=== PATIENT | male | born 1990 | race Caucasian/White ===

== ENCOUNTER 2018-09-22 05:38 | Emergency (ER) | payer SELFPAY ==
[2018-09-22] MEDS ORDERED: Acetaminophen/HYDROcodone 325-5 MG Tab PO ONE (05:55)
--- NOTE | 2018-09-22 06:01 | EDM.PDOC ---
<Sandro Martinez - Last Filed: 09/22/18 06:51> ED HPI GENERAL MEDICAL PROBLEM - General Chief Complaint: Genitourinary Problem Stated Complaint: SWOLLEN TESTICLE Time Seen by Provider: 09/22/18 05:49 Source of Information: Reports: Patient History Limitations: Reports: No Limitations - History of Present Illness INITIAL COMMENTS - FREE TEXT/NARRATIVE: The patient presents with right testicular pain. He says this all started in July. He came to the ER then with testicular pain and dysuria with discharge. He was suspected to have an STD with epidydimitis. He was given rocephin, zithromax and doxycycline. The gonorrhea and chlamydia were negative. He continued with the antibiotics and did improve but the pain came back. His girlfriend got tested and she was negative. They treated him some more with doxycycline. He got better and now he has more pain again and he says his right testicle is "rock hard" and painful. He has no dysuria or hematuria. He has no urethral discharge or rashes. He denies trauma to his testicle. He was at work this morning when he noticed it. He has no abdominal pain, nausea or vomiting. Onset: Gradual Duration: Week(s): Location: Reports: Other (Right testicle pain) Quality: Reports: Sharp Severity: Severe Improves with: Reports: None Worsens with: Reports: None Associated Symptoms: Reports: No Other Symptoms Right Penis Pain Score (Numeric/FACES): 8 - Related Data Allergies Allergy/AdvReac Type Severity Reaction Status Date / Time No Known Allergies Allergy Verified 09/22/18 05:51 Home Meds: Home Meds Albuterol [Ventolin HFA] 1 puff INH Q4H PRN 07/16/18 [History] Doxycycline [Vibramycin] 100 mg PO BID #28 cap 07/16/18 [Rx] Phenazopyridine HCl [Pyridium] 200 mg PO Q6HR #5 tablet 07/16/18 [Rx] predniSONE [Prednisone] 40 mg PO DAILY 07/16/18 [History] Hydrocodone/Acetaminophen [[place] 5-325 Tablet] 1 each PO Q4HR PRN #20 tablet [Rx] Past Medical History Respiratory History: Reports: Asthma - Past Surgical History HEENT Surgical History: Reports: Myringotomy w Tube(s) Social & Family History - Tobacco Use Smoking Status *Q: Current Every Day Smoker Years of Tobacco use: 10 Packs/Tins Daily: 0.5 - Recreational Drug Use Recreational Drug Use: No - Living Situation & Occupation Living situation: Reports: Single ED ROS GENERAL - Review of Systems Review Of Systems: See Below Constitutional: Reports: No Symptoms HEENT: Reports: No Symptoms Respiratory: Reports: No Symptoms Cardiovascular: Reports: No Symptoms Endocrine: Reports: No Symptoms GI/Abdominal: Reports: No Symptoms : Reports: Other (Right testicle pain) ED EXAM, RENAL/ - Physical Exam Exam: See Below Exam Limited By: No Limitations General Appearance: Alert, No Apparent Distress Ears: Normal External Exam Nose: Normal Inspection Head: Atraumatic, Normocephalic Neck: Normal Inspection Respiratory/Chest: No Respiratory Distress, Lungs Clear, Normal Breath Sounds Cardiovascular: Regular Rate, Rhythm, No Edema, No Murmur GI/Abdominal: Soft, Non-Tender, No Organomegaly, No Mass (Male) Exam: Circumcised, Testicular Tenderness (R). No: Rash, Testicular Mass, Urethral Discharge Course - Vital Signs Last Recorded V/S: Last Vital Signs Temp 98.5 F 09/22/18 05:49 Pulse 84 09/22/18 05:49 Resp 16 09/22/18 05:49 BP 153/103 H 09/22/18 05:49 Pulse Ox 98 09/22/18 05:49 - Orders/Labs/Meds Orders: Active Orders 24 hr Category Date Time Status Testicular US [Scrotum and Contents] [US] Stat Exams 09/22/18 05:54 Taken Labs: Laboratory Tests 09/22/18 Range/Units 07:09 Urine Color Light yellow (Yellow) Urine Appearance Clear (Clear) Urine pH 6.0 (5.0-8.0) Ur Specific [place] 1.010 (1.005-1.030) Urine Protein Negative (Negative) Urine Glucose (UA) Negative (Negative) Urine Ketones Negative (Negative) Urine Occult Blood Negative (Negative) Urine Nitrite Negative (Negative) Urine Bilirubin Negative (Negative) Urine Urobilinogen 0.2 (0.2-1.0) Ur Leukocyte Esterase Negative (Negative) Urine RBC Not seen (0-5) /hpf Urine WBC 0-5 (0-5) /hpf Ur Epithelial Cells 0-5 (0-5) /hpf Urine Bacteria Not seen (FEW) /hpf Urine Mucus Not seen (FEW) /hpf Meds: Medications Discontinued Medications Generic Name Dose Route Start Last Admin Trade Name Jonelle PRN Reason Stop Dose Admin Hydrocodone Bitart/Acetaminophen 2 tab 09/22/18 05:55 09/22/18 06:01 [place] 325-5 Mg PO 09/22/18 05:56 2 tab ONETIME ONE Administration Azithromycin 1,000 mg 09/22/18 07:36 Zithromax PO 09/22/18 07:37 ONETIME ONE Ceftriaxone Sodium 250 mg 09/22/18 07:38 Rocephin IM 09/22/18 07:39 ONETIME ONE - Re-Assessments/Exams Free Text/Narrative Re-Assessment/Exam: 09/22/18 06:01 I ordered an US of his right testicle, UA and some hydrocodone for pain. 09/22/18 06:51 It is change of shift. Dr Amaro to take over. Departure - Departure Disposition: Home, Self-Care 01 Clinical Impression: Epididymitis - Discharge Information Prescriptions: Hydrocodone/Acetaminophen [[place] 5-325 Tablet] 1 each PO Q4HR PRN #20 tablet PRN Reason: Pain Referrals: PCP,None [Primary Care Provider] - Forms: ED Department Discharge Additional Instructions: You have been given rocephin IM and zithromax 1 gram orally while here in the ED. Continue the doxycycline that you are currently taking. Ice packs as needed, aleve 2 tablets twice daily will help the pain and inflammation. you may take tylenol in addition up to 3 times daily for pain or hydrocodone if needed for severe pain. Do not take Tylenol and hydrocodone at the same time. Do not drive or work when taking hydrocodone. Follow up with your regular clinic provider if not much better within 3-5 days as expected. <Néstor Amaro - Last Filed: 09/22/18 07:49> Course - Re-Assessments/Exams Free Text/Narrative Re-Assessment/Exam: 09/22/18 07:38 Have assumed care from Dr Martinez at change of shift. US is back showing findings compatable with R epididymitis, see report for details. Will treat with zithromax 1 gram PO, rocephin 250 mg IM, will have him continue, finish the doxycycline that he is currently taking. Departure - Departure Time of Disposition: 07:40 Condition: Fair
[2018-09-22] MEDS ORDERED: Azithromycin 250 MG Tab PO ONE (07:36)
[2018-09-22] MEDS ORDERED: cefTRIAXone 250 MG Vial IM ONE (07:38)
--- NOTE | 2018-09-22 16:59 | US ---
Testicular ultrasound: Multiple real-time images of the testicles were obtained. Comparison: No prior testicular ultrasound. Findings: Testicles have a homogeneous ultrasound appearance. Both arterial and venous blood flow are seen within the testicles. Small epididymal cyst is noted on the left side measuring 3.5 cm. Small bilateral hydroceles are seen. Varicocele is noted on the left side. Right epididymis is slightly hyperemic. No additional abnormality is seen. Testicular size: Right testicle: 4.5 x 2.5 x 3.5 cm Left testicle: 4.2 x 2.1 x 3.3 cm Impression: 1. Left-sided varicocele. 2. Small bilateral hydroceles. 3. Incidental small epididymal cyst on the left side 4. Mildly hyperemic right epididymis possibly due to mild epididymitis. Diagnostic code #3 I agree with preliminary report from [facility], finalized on 09/22/18, 8:22 AM Central Time
== END 2018-09-22 08:25 | disposition home or self-care (01) ==
LOC: JD.ED 05:38
DX: N45.1 Epididymitis (principal); F17.210 Nicotine dependence, cigarettes, uncomplicated; Z79.899 Other long term (current) drug therapy
CPT/HCPCS: 76870; 81001; 93975; 96372; 99284; A9270; J0696; 99283

== ENCOUNTER 2018-12-24 21:05 | Emergency (ER) | payer SELFPAY ==
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
[2018-12-24] MEDS ORDERED: Ibuprofen 600 MG Tab PO ONE (22:15)
[2018-12-24] MEDS ORDERED: Acetaminophen/oxyCODONE 325-5 MG Tab PO ONE (22:22)
--- NOTE | 2018-12-25 06:42 | CR ---
Right ankle: Four views of the right ankle were obtained. Comparison: No prior ankle exam. Soft tissue swelling is identified. Ankle mortise is symmetric. No fracture, dislocation or other bony abnormality is seen. Impression: 1. Soft tissue swelling. No bony abnormality is seen on right ankle exam. Diagnostic code #2
== END 2018-12-24 22:53 | disposition home or self-care (01) ==
LOC: JD.ED 21:05
DX: S93.411A Sprain of calcaneofibular ligament of right ankle, initial encounter (principal); F10.129 Alcohol abuse with intoxication, unspecified; W01.0XXA Fall on same level from slipping, tripping and stumbling without subsequent striking against object, initial encounter
CPT/HCPCS: 73610; 99283; A9270

== ENCOUNTER 2019-05-02 20:40 | Emergency (ER) | payer SELFPAY ==
[2019-05-02] MEDS ORDERED: Ketorolac 30 MG/ML SDV IVPUSH STA (21:33)
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
[2019-05-02] MEDS ORDERED: Sodium Chloride 0.9% 1,000 ML IV SCH (21:45)
--- NOTE | 2019-05-05 07:00 | CR ---
Right wrist: Four views of the right wrist were obtained. Comparison: No previous study. Slight irregularity is again seen off the base of the fifth metacarpal. As mentioned previously, this is believed to represent injury. Joint spaces within the wrist appear maintained. No acute fracture or other bony abnormality is identified. Impression: 1. Findings felt compatible with old injury within the corner base of the fifth metacarpal. 2. Right wrist exam is otherwise unremarkable. Diagnostic code #2
--- NOTE | 2019-05-05 07:33 | CR ---
Right hand: Four views of the right hand were obtained. Comparison: No previous study. Very small corner fracture is identified within the base of the fifth metacarpal. This is slightly sclerotic and is most likely old. No additional fracture or other bony abnormality is identified. Impression: 1. Small corner fracture which is most likely old within the base of fifth metacarpal. 2. No additional abnormality is appreciated on right hand exam. Diagnostic code #2
== END 2019-05-02 22:24 | disposition home or self-care (01) ==
LOC: JD.ED 20:40
DX: S61.214A Laceration without foreign body of right ring finger without damage to nail, initial encounter (principal); S60.221A Contusion of right hand, initial encounter; F10.229 Alcohol dependence with intoxication, unspecified; I10 Essential (primary) hypertension; F17.210 Nicotine dependence, cigarettes, uncomplicated; W22.8XXA Striking against or struck by other objects, initial encounter
CPT/HCPCS: 73110; 73130; 99283; J1885; J7040

== ENCOUNTER 2019-06-07 19:53 | Emergency (ER) | payer OTHER ==
[2019-06-07] MEDS ORDERED: Iopamidol 612 MG/ML 100 ML Bottle IVPUSH ONE (20:00)
[2019-06-07] MEDS ORDERED: HYDROmorphone 1 MG/ML Syringe ONE (20:06)
[2019-06-07] MEDS ORDERED: HYDROmorphone 1 MG/ML Syringe IVPUSH ONE ×2 (20:10)
[2019-06-07] MEDS ORDERED: Ondansetron 4 MG/2 ML SDV IVPUSH ONE (20:11)
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
--- NOTE | 2019-06-07 20:36 | CT ---
Head CT Technique: Multiple axial sections through the brain were obtained. Intravenous contrast was not utilized. Comparison: No prior intracranial imaging. Findings: Motion artifact is seen which diminishes details of the exam. Within this limitation, no definite abnormal parenchymal densities are seen. No definite findings of intracranial hemorrhage. No midline shift or mass effect is seen. Bone window settings were reviewed which show no discrete calvarial abnormality. Nothing acute is seen within the visualized paranasal sinuses or mastoid sinuses. Impression: 1. Motion artifact limiting details. Within this limitation, no definite acute finding is seen on noncontrast head CT exam. Diagnostic code #2
--- NOTE | 2019-06-07 20:55 | CT ---
CT cervical spine Technique: Multiple axial sections were obtained from above C1 inferiorly to the lower T1 level. Reconstructed sagittal and coronal images were obtained. Comparison: No previous study. Findings: Mild disc space narrowing is noted at C5-C6 with slight anterior osteophytes and minimal posterior spurring. Mild anterior osteophytes are noted at C6-7. Vertebral body heights are maintained. Vertebral bodies and posterior arches show no fracture. Motion artifact is noted within the lower most images which limits evaluation. No abnormal subluxation is seen. Impression: 1. Mild degenerative change. 2. Motion artifact within the lower most images. 3. Within the limitation of motion, nothing acute is definitely appreciated on CT study of the cervical spine. Diagnostic code #2
--- NOTE | 2019-06-07 21:04 | CT ---
CT chest Technique: Multiple axial sections were obtained from slightly above the lung apices inferiorly through the lung bases. Intravenous contrast was utilized. Artifact is noted from patient's arms located along the patient's side. Findings: Soft tissue density is noted within the superior mediastinum which is felt compatible with residual thymic tissue. Mediastinum and hilar region show no adenopathy. No pericardial thickening is seen. Lungs show no definite parenchymal opacities. No pleural effusions or discrete pneumothorax is seen. There does appear to be fractures within the posterior right 10th , 9th and possibly 8th and 7th ribs. Other rib fractures could be missed due to motion.. No gross bony abnormality is seen. Impression: 1. Motion artifact. Fractures within the posterior 10th and 9th ribs and possibly 8th and 7th posterior ribs on the right side. Motion artifact could obscure other rib fractures. 2. No other definite acute finding is seen on CT study of the chest. Diagnostic code #3 CT abdomen and pelvis Technique: Multiple axial sections were obtained from above the dome of the diaphragm inferiorly through the pubic symphysis. Intravenous contrast was utilized. No oral contrast has been given. Comparison: No prior abdominal imaging is available. Findings: Stomach is dilated with food material. Liver contains no focal abnormality. Gallbladder contains no calcified gallstones. Spleen shows no discrete abnormality. Adrenal glands show no nodule. Pancreas appears within normal limits. Kidneys show symmetric contrast enhancement without hydronephrosis or mass. Abdominal aorta shows no aneurysm. No retroperitoneal adenopathy or mesenteric abnormalities are seen. No pelvic mass or adenopathy is seen. No free fluid or inflammatory change is seen. Appendix is felt to be visualized on the coronal images and is normal in size. Bone window settings were reviewed which shows disc space narrowing within the mid and lower thoracic spine. This is most likely developmental. No definite fracture or abnormal subluxation is seen. Impression: 1. Dilated stomach with food material. 2. Nothing acute is definitely appreciated on CT study of the abdomen and pelvis. Diagnostic code #2
[2019-06-07] MEDS ORDERED: Sodium Chloride 0.9% 1,000 ML ONE (21:54)
[2019-06-07] MEDS ORDERED: Sodium Chloride 0.9% 1,000 ML IV SCH (22:00)
[2019-06-07] MEDS ORDERED: HYDROmorphone 0.5 MG/0.5 ML Syringe IVPUSH ONE (22:05)
--- NOTE | 2019-06-08 10:57 | CR ---
Right hand: Three views of the right hand were obtained. Small calcification is seen off the base of the fifth metacarpal. Difficult to exclude small chip fracture. There does appear to be soft tissue swelling. Joint spaces are maintained. No additional fracture or other bony abnormality is seen. Impression: 1. Soft tissue swelling. 2. Questionable minimal chip fracture off the base of the fifth metacarpal. Diagnostic code #3
== END 2019-06-07 23:16 ==
LOC: JD.ED 19:53
DX: S22.41XA Multiple fractures of ribs, right side, initial encounter for closed fracture (principal); S31.020A Laceration with foreign body of lower back and pelvis without penetration into retroperitoneum, initial encounter; S61.411A Laceration without foreign body of right hand, initial encounter; S60.221A Contusion of right hand, initial encounter; S40.812A Abrasion of left upper arm, initial encounter; S40.811A Abrasion of right upper arm, initial encounter; S80.812A Abrasion, left lower leg, initial encounter; S80.811A Abrasion, right lower leg, initial encounter; F10.120 Alcohol abuse with intoxication, uncomplicated; I10 Essential (primary) hypertension; J45.909 Unspecified asthma, uncomplicated; Y90.1 Blood alcohol level of 20-39 mg/100 ml; V48.9XXA Unspecified car occupant injured in noncollision transport accident in traffic accident, initial encounter; Y92.410 Unspecified street and highway as the place of occurrence of the external cause
CPT/HCPCS: 36415; 70450; 71260; 72125; 73130; 74177; 80053; 80320; 82150; 84484; 85025; 85610; 85730; 93005; 96361; 96374; 96375; 96376; 99285; J1170; J2405; J7040; 93010; G0480

== ENCOUNTER 2019-06-19 20:36 | Emergency (ER) | payer SELFPAY ==
[2019-06-19] MEDS ORDERED: HYDROmorphone 1 MG/ML Syringe IVPUSH ONE (20:40)
[2019-06-19] MEDS ORDERED: LORazepam 2 MG/ML SDV IVPUSH ONE (20:41)
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
[2019-06-19] MEDS ORDERED: Dextrose 5%-0.9% NaCl 1,000 ML IV SCH (20:45)
[2019-06-19] MEDS ORDERED: Metoclopramide 10 MG/2 ML SDV IVPUSH ONE (20:46)
--- NOTE | 2019-06-20 08:16 | CT ---
CT chest Technique: Multiple axial sections through the chest were obtained. Intravenous contrast was not utilized. Comparison: Previous chest CT study of 06/07/19. Findings: Current study shows significantly less motion artifact than previous and therefore shows more detail. Nondisplaced fracture is noted within the posterior right 7th rib. Mildly displaced fracture is seen within the posterior 8th, 9th and 10th ribs. Very minimal cortical disruption seen within the lateral left 6th rib. This is felt compatible with a nondisplaced fracture. No other definite rib fracture is seen. Disc space narrowing is noted within the mid and lower thoracic spine with endplate irregularity believed to be developmental. Nothing acute is seen within the thoracic spine. Reconstructed sagittal images show the sternum to appear intact. Fracture is noted within the left wing of the scapula. This measures about 2.8 mm in greatest displacement. Mediastinum and hilar regions have an unremarkable noncontrast appearance. No axillary adenopathy is seen. No pericardial fluid is seen. No pneumothorax is noted. Lungs are clear with no acute parenchymal change. Very minimal pleural effusion seen on the right side. Impression: 1. 4 rib fractures seen on the right side with one nondisplaced fracture noted on the left side. 2. Mildly displaced fracture within the left scapular wing. 3. No pneumothorax or acute parenchymal change is seen. Note: No definite change is believed to be present from prior chest CT. Diagnostic code #3 I agree with preliminary report from [facility], finalized on 06/19/19, 10:54 PM Central Time
--- NOTE | 2019-06-20 08:16 | CR ---
Left humerus: Two views of the left humerus were obtained. Comparison: No previous left humerus exam. Fracture is noted beneath the glenoid involving the body of the scapula in a transverse direction. No additional fracture or other bony abnormality is seen. Impression: 1. Left scapular fracture. No additional abnormality is appreciated on left humerus study. Diagnostic code #3
== END 2019-06-20 04:24 | disposition home or self-care (01) ==
LOC: JD.ED 20:36
DX: S42.102A Fracture of unspecified part of scapula, left shoulder, initial encounter for closed fracture (principal); S20.211A Contusion of right front wall of thorax, initial encounter; S22.41XD Multiple fractures of ribs, right side, subsequent encounter for fracture with routine healing; F10.120 Alcohol abuse with intoxication, uncomplicated; Y90.7 Blood alcohol level of 200-239 mg/100 ml; R29.6 Repeated falls; I10 Essential (primary) hypertension; W00.0XXA Fall on same level due to ice and snow, initial encounter; Y93.01 Activity, walking, marching and hiking; Y92.038 Other place in apartment as the place of occurrence of the external cause
CPT/HCPCS: 36415; 71250; 73060; 80053; 80320; 83690; 85025; 86140; 96361; 96374; 96375; 99285; J1170; J2060; J2765; J7042; G0480

== ENCOUNTER 2019-10-13 20:45 | Emergency (ER) | payer SELFPAY ==
[2019-10-14] MEDS ORDERED: Lactated Ringers 1,000 ML IV ONE (01:26)
--- NOTE | 2019-10-14 01:27 | EDM.PDOCBH ---
ED HPI GENERAL MEDICAL PROBLEM - General Chief Complaint: Drug or Alcohol Abuse Stated Complaint: LAW ENFORCEMENT Time Seen by Provider: 10/14/19 01:05 Source of Information: Reports: Patient History Limitations: Reports: Intoxication (Able to answer questions) - History of Present Illness INITIAL COMMENTS - FREE TEXT/NARRATIVE: Mr. Luciano is a very pleasant 29-year-old man with past medical history significant for alcoholism, untreated hypertension, and untreated asthma, who is brought to the ED by the [place] police after he was found outside, intoxicated. They took him home, however, he then stumbled and they felt that he was too intoxicated to leave alone. It is unclear if the patient was taken to long term initially, but he was ultimately brought here in order to be medically cleared to go to long term. He is not under arrest. The patient had earlier been crying and asking why nobody liked him, however, at present, he is rational and cooperative. He did not initially know where he was, thinking that he was at the [facility] in clinic, and he did not recall how he got here. He acknowledged that he drank a lot recently, telling me that he drinks about 1/4 of a handle (about 10 drinks) of whiskey on a near-daily basis. He denied any additional alcohol, such as beer, but he acknowledges that he smoked marijuana about 2 or 3 days ago. The patient denies any recent illness or injury, although I note that he has some ecchymosis about his left eye. When asked about that, he stated "I probably fell". The patient does not have a PCP. He states that he did receive an influenza vaccine this season. - Related Data Allergies Allergy/AdvReac Type Severity Reaction Status Date / Time No Known Allergies Allergy Verified 10/13/19 20:51 Home Meds: Home Meds . [No Known Home Meds] 10/13/19 [History] Past Medical History Respiratory History: Reports: Asthma (untreated) Musculoskeletal History: Reports: Fracture (5 right, 1 left rib, left scapula) Psychiatric History: Reports: Addiction (alcohol) - Past Surgical History HEENT Surgical History: Reports: Myringotomy w Tube(s) (bilateral) Social & Family History - Family History Family Medical History: Noncontributory - Tobacco Use Smoking Status *Q: Current Every Day Smoker Years of Tobacco use: 14 Packs/Tins Daily: 2.5 - Caffeine Use Caffeine Use: Reports: None - Alcohol Use Alcohol Use History: Yes Days Per Week of Alcohol Use: 7 Number of Drinks Per Day: 10 Total Drinks Per Week: 70 Alcohol Use Frequency: Daily - Recreational Drug Use Recreational Drug Use: Yes Drug Use in Last 12 Months: Yes Recreational Drug Type: Reports: Cocaine (last snorted or smoked 2015), Heroin ( last smoked 2015), Marijuana/Hashish (smokes several times a week), Methamphetamine (last snorted or smoked 2015), Other (see below) (Vicodin/norco - last snorted or smoked 2008) - Living Situation & Occupation Living situation: Reports: Single, Alone Occupation: Employed ([employer]) ED ROS GENERAL - Review of Systems Review Of Systems: Comprehensive ROS is negative, except as noted in HPI. ED EXAM, BEHAVIORAL HEALTH - Physical Exam Exam: See Below Exam Limited By: Other (Cooperative with exam) General Appearance: No Apparent Distress Eye Exam: Right Eye: Normal Inspection, Left Eye: Other (Mild ecchymosis about left eye), Bilateral Eye: EOMI Ears: Normal External Exam, Hearing Grossly Normal Nose: Normal Inspection Throat/Mouth: Normal Inspection, Normal Lips, Normal Voice, No Airway Compromise Head: Atraumatic, Normocephalic Neck: Normal Inspection, Full Range of Motion Respiratory/Chest: No Respiratory Distress, Lungs Clear, Normal Breath Sounds, No Accessory Muscle Use Cardiovascular: Normal Peripheral Pulses, Regular Rate, Rhythm, No Edema, No Gallop, No JVD, No Murmur, No Rub GI/Abdominal: Normal Bowel Sounds, Soft, Non-Tender, No Organomegaly, No Distention, No Abnormal Bruit, No Mass (Male) Exam: Deferred Rectal (Males) Exam: Deferred Back Exam: Normal Inspection, Full Range of Motion Extremities: Normal Inspection, Normal Range of Motion, No Pedal Edema, Normal Capillary Refill Neurological: No Motor/Sensory Deficits Psychiatric: Normal Affect Skin Exam: Warm, Dry, Intact, Normal color, No rash COURSE, BEHAVIORAL HEALTH COMP - Course Vital Signs: Last Vital Signs Temp 36.8 C 10/13/19 20:47 Pulse 83 10/13/19 20:47 Resp 16 10/13/19 20:47 BP 117/78 10/13/19 20:47 Pulse Ox 98 02/03/20 20:47 Orders, Labs, Meds: Laboratory Tests 10/14/19 10/14/19 Range/Units 01:34 01:34 WBC 11.84 H (4.23-9.07) K/mm3 RBC 5.76 (4.63-6.08) M/mm3 Hgb 16.6 (13.7-17.5) gm/dl Hct 49.4 (40.1-51.0) % MCV 85.8 (79.0-92.2) fl MCH 28.8 (25.7-32.2) pg MCHC 33.6 (32.2-35.5) g/dl RDW Std Deviation 46.2 H (35.1-43.9) fL Plt Count 251 D (163-337) K/mm3 MPV 9.4 (9.4-12.3) fl Neut % (Auto) 55.8 (34.0-67.9) % Lymph % (Auto) 34.5 (21.8-53.1) % Hayes % (Auto) 7.3 (5.3-12.2) % Eos % (Auto) 1.8 (0.8-7.0) Baso % (Auto) 0.4 (0.1-1.2) % Neut # (Auto) 6.62 H (1.78-5.38) K/mm3 Lymph # (Auto) 4.08 H (1.32-3.57) K/mm3 Hayes # (Auto) 0.86 H (0.30-0.82) K/mm3 Eos # (Auto) 0.21 (0.04-0.54) K/mm3 Baso # (Auto) 0.05 (0.01-0.08) K/mm3 Manual Slide Review Abnormal smear Sodium 144 (136-145) mEq/L Potassium 3.9 (3.5-5.1) mEq/L Chloride 108 H (98-107) mEq/L Carbon Dioxide 24 (21-32) mEq/L Anion Gap 15.9 H (5-15) BUN 9 (7-18) mg/dL Creatinine 0.8 (0.7-1.3) mg/dL Est Cr Clr Drug Dosing 134.19 mL/min Estimated GFR (MDRD) > 60 (>60) mL/min BUN/Creatinine Ratio 11.3 L (14-18) Glucose 99 (74-106) mg/dL Calcium 8.8 (8.5-10.1) mg/dL Magnesium 2.1 (1.8-2.4) mg/dl Total Bilirubin 0.2 (0.2-1.0) mg/dL AST 14 L (15-37) U/L ALT 24 (16-63) U/L Alkaline Phosphatase 56 (46-116) U/L Total Protein 7.8 (6.4-8.2) g/dl Albumin 4.2 (3.4-5.0) g/dl Globulin 3.6 gm/dL Albumin/Globulin Ratio 1.2 (1-2) Ethyl Alcohol 0.19 (0.00) gm% Medications Discontinued Medications Generic Name Dose Route Start Last Admin Trade Name Henrikq PRN Reason Stop Dose Admin Lactated Ringer's 1,000 mls @ 999 mls/hr 10/14/19 01:26 10/14/19 01:33 Ringers, Lactated IV 10/14/19 02:26 999 mls/hr .BOLUS ONE Administration Medical Clearance: 10/14/19 01:26 As above, the patient is intoxicated and does not know why he is here or how he got here. In order to make sure that he has not suffered any significant fluid or electrolyte shifts, I have ordered an IV to be placed, some blood work to be drawn, and a urine drug screen. In the meantime, the patient will receive a liter of LR. The plan will be to allow him to sober up in the ED overnight, then discharge him home in the morning. 10/14/19 06:20 The patient's CBC is remarkable for WBC count mildly elevated at 11.84, with the remainder of his CBC being unremarkable. His CMP is remarkable for a chloride slightly elevated at 108. His anion gap is elevated at 15.8, but with a bicarbonate normal at 24. The remainder of his CMP is unremarkable. His magnesium level is within normal limits at 2.1. His EtOH level is elevated at 0.19. The patient did not provide a urine sample for us to check a urine drug screen. The patient got up and let us know that he needed to leave right away. He did not wait for discharge instructions. Departure - Departure Time of Disposition: 06:20 Disposition: Home, Self-Care 01 Condition: Good Clinical Impression: Alcohol dependence, daily use Alcohol intoxication Qualifiers: Complication of substance-induced condition: uncomplicated Qualified Code(s): F10.920 - Alcohol use, unspecified with intoxication, uncomplicated - Discharge Information *PRESCRIPTION DRUG MONITORING PROGRAM REVIEWED*: Not Applicable *COPY OF PRESCRIPTION DRUG MONITORING REPORT IN PATIENT DARCI: Not Applicable Referrals: PCP,Unknown [Ordering Only Provider] - Sepsis Event Note - Evaluation Sepsis Screening Result: No Definite Risk - Focused Exam Date Exam was Performed: 10/14/19 Time Exam was Performed: 08:47
== END 2019-10-14 06:15 | disposition home or self-care (01) ==
LOC: JD.ED 20:45
DX: F10.220 Alcohol dependence with intoxication, uncomplicated (principal); S00.12XA Contusion of left eyelid and periocular area, initial encounter; I10 Essential (primary) hypertension; F17.210 Nicotine dependence, cigarettes, uncomplicated; Y90.6 Blood alcohol level of 120-199 mg/100 ml; X58.XXXA Exposure to other specified factors, initial encounter
CPT/HCPCS: 36415; 80053; 80320; 83735; 85025; 96360; 99284; J7120; 99283; G0480

== ENCOUNTER 2020-12-29 11:43 | Emergency (ER) | payer OTHER ==
[2020-12-29] MEDS ORDERED: Lidocaine 1% 10 ML MDV INJECT ONE (11:55)
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
== END 2020-12-29 13:05 | disposition home or self-care (01) ==
LOC: JD.ED 11:43
DX: S61.012A Laceration without foreign body of left thumb without damage to nail, initial encounter (principal); I10 Essential (primary) hypertension; W26.0XXA Contact with knife, initial encounter; Y99.0 Civilian activity done for income or pay
CPT/HCPCS: 12001; 12002; 99282; 99282-25